=== PATIENT | female | born 1985 | race Two or more races ===

== ENCOUNTER 2017-06-30 10:19 | Emergency (ER) | payer OTHER ==
[2017-06-30 10:27] VITALS: BP 114/69; PULSE 72; RESP 16; TEMP 98.2; O2SAT 99
--- NOTE | 2017-06-30 11:16 | EDPHY ---
H & P Time Seen by Provider: 06/30/17 10:43 HPI/ROS: This patient complains of left hamstring pain and lateral thigh pain. She 1st noticed this with slight discomfort while doing squat lift exercises 3 days prior to arrival. The day after she started noticing slightly more discomfort in the area which persists today-3 days after her exercise. Current pain is 3/ 10 intensity. She also describes a mild ache in her left ankle at the site of prior ORIF from ankle fracture 4 years ago on the same side-left ankle. She states the ankle discomfort is minimal. Her thigh pain worsens slightly with walking and she notes no other exacerbating factors. She has not tried any medications for her symptoms. She drove here by private vehicle for evaluation of her symptoms. ROS: Constitutional: No fevers or chills Musculoskeletal: No knee joint pain. No knee swelling. No calf swelling or pain. No other musculoskeletal complaints Cardiovascular: No leg swelling or discoloration Integumentary: No skin rash Neuro: No numbness tingling weakness. 5 point ROS is otherwise negative Past Medical/Surgical History: Otherwise healthy Social History: The patient reports that she had taken a break from lifting exercise and other exercise and just started up again 3 days prior to arrival. Smoking Status: Never smoked Physical Exam: Physical Exam Vital signs are normal. General: No acute distress Eyes: Pupils equal and react to light. Extraocular motions are intact. Lungs: No respiratory distress. Cardiac: Brisk capillary refill is intact throughout. Pulses are 2+ and symmetric in the affected extremity. Skin: No rash or pallor. Extremities: Atraumatic normal except for left lower extremity Left lower extremity: Patient has mild left hamstring tenderness the distal hamstring region that replicates her pain. She also has mild tenderness the lateral distal thigh-IT band area. Knee exam left side is normal with Silvio' s is negative for laxity or pain and varus and valgus stress without pain. No patellar anxiety with lateral movement no effusion. Her hamstring pain increases with resistance verses knee flexion. No difficulty with resistance in knee extension. Left ankle exam: Clean dry intact surgical scar with very minimal ankle tenderness but no swelling ecchymosis or erythema or instability on ligamentous stress testing. Negative tilt test of the ankle. Neuro: Alert with no sensorimotor deficits in the affected extremity. Initial differential diagnosis: Muscle strain, IT band irritation, doubt Gardner cyst, chronic postop pain ankle, doubt ankle sprain Constitutional: Initial Vital Signs Temperature (C) 36.8 C 06/30/17 10:22 Heart Rate 72 06/30/17 10:22 Respiratory Rate 16 06/30/17 10:22 Blood Pressure 114/69 06/30/17 10:22 O2 Sat (%) 99 06/30/17 10:22 O2 Delivery Mode Room Air Allergies/Adverse Reactions: ibuprofen Allergy (Verified 06/30/17 10:27) Pt reports hives Home Medications: Medication Instructions Recorded Albuterol 07/19/15 ZYRTEC 07/19/15 Flovent Diskus 06/30/17 Klonopin 06/30/17 Methocarbamol [Robaxin 750 mg (*)] 750 - 1,500 mg PO QID PRN #30 tab 06/30/17 MDM/Departure - MDM ED Course/Re-evaluation: Discussion: Patient's findings are consistent with hamstring muscle strain and IT band tightness irritation. I counseled regarding this. I find no clinical evidence of suggest DVT, knee injury or significant ankle injury. I encouraged the patient to use Aleve and said she has tolerated this in the past and methocarbamol if needed explaining that findings are consistent with muscle strain after weight lifting. Answered the patient's questions. I encouraged her to follow up with Orthopedics regarding her mild ankle discomfort. I do not find indication for radiographs at this time. Ansell all of her questions. The patient understands need to return should she develop any significant worsening despite the treatment plan - Depart Disposition: Home, Routine, Self-Care Clinical Impression: Hamstring muscle strain Qualifiers: Encounter type: initial encounter Laterality: left Qualified Code(s): S76.312A - Strain of muscle, fascia and tendon of the posterior muscle group at thigh level, left thigh, initial encounter Ankle pain, left Qualifiers: Chronicity: acute Qualified Code(s): M25.572 - Pain in left ankle and joints of left foot Condition: Good Instructions: Muscle Strain (ED) Additional Instructions: Diagnoses: 1. Hamstring muscle strain 2. Ankle pain Plan: Aleve and Tylenol for discomfort if needed Methocarbamol muscle relaxant in addition if needed Gentle stretches as described for 3-5 minutes on each muscle set. Also consider a roller fever IT band area. Follow up with orthopedic physician for any ongoing symptoms despite the treatment plan. Return for any significant worsening despite the treatment plan. Prescriptions: Methocarbamol [Robaxin 750 mg (*)] 750 - 1,500 mg PO QID PRN #30 tab PRN Reason: Muscle Spasms Referrals: CARLEE CACERES [Primary Care Provider] - As per Instructions Carlton Wallis MD [Medical Doctor] - As per Instructions
== END 2017-06-30 11:17 | disposition home or self-care (01) ==
LOC: CED 10:19
DX: S76.312A Strain of muscle, fascia and tendon of the posterior muscle group at thigh level, left thigh, initial encounter (principal); S99.912A Unspecified injury of left ankle, initial encounter; X58.XXXA Exposure to other specified factors, initial encounter; Y99.8 Other external cause status; Y93.B9 Activity, other involving muscle strengthening exercises